=== PATIENT | female | born 1970 | race Caucasian/White ===

== ENCOUNTER → 2017-03-09 | Outpatient (CLI) | payer BC, OTHER ==
--- NOTE | 2017-03-10 08:26 | MRI ---
MRI left knee without contrast INDICATION: Knee pain localized no specific trauma unspecified date of onset TECHNIQUE: Noncontrast MR imaging left knee FINDINGS: Cruciate ligaments are intact. 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 There is also a small joint effusion. Mild chondral thinning is noted at the patellar apex grade 2. Mild interstitial tendinosis distal quadricep and proximal patellar tendon. Mild prepatellar and superficial infrapatellar bursal edema. Vague chondral thinning is noted in the inferior midline trochlea grade 2-3. Diffuse interstitial fissuring in the anterior horn lateral meniscus without displaced meniscal tear. Minimal degenerative signal medial meniscus. IMPRESSION: Castanon's cyst Mild degenerative change of the menisci with fissuring in the anterior horn lateral meniscus Multifocal mild chondrosis of the knee most notable in the patellofemoral joint especially inferior midline trochlea grade 2-3 Small joint effusion Electronically signed by: Selwyn Ramos MD 03/10/2017 8:25 AM [facility]
== END | disposition home or self-care (01) ==
LOC: MRI 11:06
PROVIDERS: ATTEND Family Medicine
DX: M17.12 Unilateral primary osteoarthritis, left knee (principal); M71.22 Synovial cyst of popliteal space [Baker], left knee

== ENCOUNTER 2019-01-17 05:06 | Day surgery (SDC) | payer OTHER ==
[2019-01-17] MEDS ORDERED: LACTATED RINGERS 1,000 ML ONE (05:49)
[2019-01-17] MEDS ORDERED: LIDOCAINE 1% 10 ML VIAL INJ ONE (10:00)
[2019-01-17] MEDS ORDERED: PROPOFOL 200 MG/20 ML VIAL IV ONE (10:00)
--- NOTE | 2019-01-17 10:08 | OP ---
DATE OF PROCEDURE: 01/17/19 PREOPERATIVE DIAGNOSIS: 1. Gastroesophageal reflux disease. 2. Extraesophageal manifestations of reflux (sneezing). POSTOPERATIVE DIAGNOSIS: 1. LA Grade A reflux esophagitis. 2. Antral gastritis. PROCEDURE: 1. Esophagogastroduodenoscopy plus biopsy. SURGEON: Mane Childers MD. COMPLICATIONS: None apparent. BLOOD LOSS: None. MEDICATIONS: Monitored anesthesia care. DESCRIPTION OF PROCEDURE: Informed consent was obtained prior to sedation. The preprocedure cardiopulmonary assessment was satisfactory. The patient was placed in the left lateral decubitus position and was sedated. The tip of the Olympus esophagogastroduodenoscope was inserted in the oropharynx and carefully advanced through the cricopharyngeus into the esophageal lumen. The esophagus was unremarkable except down near the GE junction. She does have LA Grade A reflux esophagitis changes. Biopsies were obtained with cold biopsy forceps. There was no evidence of Roy's esophagus, stricture or other mucosal disease there. The stomach was examined with direct and retroflexed views. The antrum, body, fundus, cardia and incisura were examined with direct and retroflexed views. The patient does have some antral gastritis and biopsies were obtained with cold biopsy forceps. The stomach was otherwise unremarkable. The duodenum was examined the second portion and it was unremarkable as well. The procedure was then terminated. RECOMMENDATIONS: 1. Daily proton pump inhibitor. 2. Antireflux measures. 3. Followup the biopsies. cc: MD BROWN Mayfield
[2019-01-17 10:32] VITALS: BP 99/53; TEMP 97.4; O2SAT 98
== END 2019-01-17 09:15 | disposition home or self-care (01) ==
LOC: AMB 05:06
PROVIDERS: ATTEND Internal Medicine Gastroenterology
DX: K21.0 Gastro-esophageal reflux disease with esophagitis (principal); K29.50 Unspecified chronic gastritis without bleeding; Z87.442 Personal history of urinary calculi
CPT/HCPCS: 00731; 43239; J3490; J7120

== ENCOUNTER → 2019-02-20 | Outpatient (CLI) | payer OTHER ==
--- NOTE | 2019-02-20 10:08 | MRI ---
Study: MRI of the Right Shoulder. Indication: PAIN IN RT SHOULDER Technique: Multiplanar, multi sequence MRI of the right shoulder was obtained without intravenous contrast. Comparison: None. Findings: Minimal AC joint osteoarthritis. Type I acromion. Trace subacromial/subdeltoid bursal fluid. Supraspinatus and infraspinatus tendinosis, attenuation, and mild tendon elongation with medial myotendinous retraction by approximately 15 mm. Scattered interstitial fissuring supraspinatus tendon insertion. Subscapularis tendinosis and low-grade attenuation. Teres minor tendon intact. Rotator cuff musculature normal without atrophy, fatty infiltration, or intramuscular edema. Long head biceps tendon intact. Anterior superior sublabral foramen. Mild circumferential labral truncation and degeneration. No full fluid-filled full-thickness labral tear. No acute fracture or advanced glenohumeral joint osteoarthritis. Thickening and edema inferior glenohumeral ligament which can be seen with adhesive capsulitis. Impression: Supraspinatus and infraspinatus tendinosis, attenuation, and tendon elongation with scattered interstitial fissuring throughout supraspinatus tendon insertion. Subscapularis tendinosis and low-grade attenuation. Mild circumferential labral truncation and degeneration. Adhesive capsulitis. Minimal AC joint osteoarthritis. Electronically signed by: Osmany Watson MD 02/20/2019 10:06 AM [facility]
== END ==
LOC: MRI 08:00
PROVIDERS: ATTEND Family Medicine
DX: S43.431A Superior glenoid labrum lesion of right shoulder, initial encounter (principal); M77.9 Enthesopathy, unspecified; M19.011 Primary osteoarthritis, right shoulder; M75.01 Adhesive capsulitis of right shoulder